=== PATIENT | male | born 1970 | race Caucasian/White ===

== ENCOUNTER 2020-03-14 04:31 | Emergency (ER) | payer OTHER ==
[2020-03-14] MEDS ORDERED: KETOROLAC TROMETHAMINE INJ/PF 30 MG/1 ML SDV IV ONE (04:47)
[2020-03-14] MEDS ORDERED: ONDANSETRON HCL INJ/PF 4 MG/2 ML SDV IV ONE (04:47)
[2020-03-14] MEDS ORDERED: MORPHINE SULFATE 10 MG/ML INJ IV ONE (04:47)
[2020-03-14] MEDS ORDERED: NORMAL SALINE 1000 ML 1,000 ML IV ONE ×2 (04:47→06:17)
--- NOTE | 2020-03-14 04:49 | ER Document Report ---
ED GI/ - General Chief Complaint: Flank Pain Stated Complaint: FLANK PAIN Time Seen by Provider: 03/14/20 04:43 Notes: Patient is a 49-year-old male who comes emergency department for chief complaint of right abdominal and right flank pain. Patient states that he has a known 3.5 mm kidney stone that he is passing on the right side, he states he was seen in [place] this morning for it, he traveled to help his daughter here today and then suddenly started having severe worsening pain tonight with multiple episodes of vomiting. He denies fever. He states he has had multiple kidney stones that he has passed previously. He denies any abdominal surgeries, only past medical history reported is orthopedic surgery. He states he is currently on Flomax, Westhope, Zofran. - Related Data Allergies/Adverse Reactions: No Known Allergies Allergy (Unverified 03/14/20 04:36) Past Medical History - General Information source: Patient - Social History Smoking Status: Never Smoker Frequency of alcohol use: Occasional Drug Abuse: None Lives with: Family Family History: Reviewed & Not Pertinent Patient has homicidal ideation: No Renal/ Medical History: Reports: Hx Kidney Stones Past Surgical History: Reports: Hx Orthopedic Surgery - Immunizations Hx Diphtheria, Pertussis, Tetanus Vaccination: Yes Review of Systems - Review of Systems Constitutional: No symptoms reported EENT: No symptoms reported Cardiovascular: No symptoms reported Respiratory: No symptoms reported Gastrointestinal: See HPI Genitourinary: See HPI Male Genitourinary: See HPI Musculoskeletal: No symptoms reported Skin: No symptoms reported Hematologic/Lymphatic: No symptoms reported Neurological/Psychological: No symptoms reported Physical Exam - Vital signs Vitals: Temp Pulse Resp BP Pulse Ox 98.6 F 76 20 176/100 H 98 03/14/20 04:35 03/14/20 04:35 03/14/20 04:35 03/14/20 04:35 03/14/20 04:35 - Notes Notes: GENERAL: Patient is alert and cooperative, he is restless, he appears to be in moderate distress and has difficulty holding still HEAD: Normocephalic, atraumatic. EYES: Pupils equal, round, and reactive to light. Extraocular movements intact. ENT: Oral mucosa dry, tongue midline. Oropharynx unremarkable. Airway patent. NECK: Full range of motion. Supple. Trachea midline. No lymphadenopathy. LUNGS: Clear to auscultation bilaterally, no wheezes, rales, or rhonchi. No respiratory distress. Non-tender chest wall. HEART: Regular rate and rhythm. No murmur ABDOMEN: Generalized tenderness in the right mid to lower abdomen, nonspecific, no guarding. Otherwise unremarkable. GENITOURINARY: No swelling, tenderness, erythema, or other abnormality noted. Exam performed with Darlene RN at bedside. EXTREMITIES: Moves all 4 extremities spontaneously. No edema, normal radial and dorsalis pedis pulses bilaterally. No cyanosis. BACK: no cervical, thoracic, lumbar midline tenderness. No saddle anesthesia, normal distal neurovascular exam. Moves all extremities in full range of motion. NEUROLOGICAL: Alert and oriented x3. Normal speech. Cranial nerves II through XII grossly intact. Strength 5/5 in all extremities. PSYCH: Restless and agitated SKIN: Slightly diaphoretic and flushed Course - Re-evaluation Re-evalutation: Patient was initially vomiting in the bathroom, I assisted him back into the room, patient is very restless and uncomfortable. Patient was medicated with 8 mg of morphine, 50 mg of Toradol, 4 mg of Zofran, IV fluids. CBC unremarkable, chemistry shows elevated creatinine at 1.86, nonspecific otherwise. Urinalysis still pending. Patient reevaluated, he is still quite uncomfortable. Given 1 mg of Dilaudid and 25 mg of Benadryl. Given additional IV fluids. KUB unremarkable with no obvious passing stone or severe constipation, no obstructive findings. Urinalysis does not show infection or concerning findings. On reevaluation patient has no symptoms, states he feels completely better, he has been able to tolerate p.o. without difficulty, patient is very appreciative and requesting to go home. Patient will be provided with stronger pain medication, he does already have urology follow-up and will be going back to [place] in a couple of days for this. Provided with copy of his renal functioning, patient states this is approximately what his renal functioning was on recent check and he states he will make sure this improves. Discussed return precautions. Patient states appreciation and agreement. Stable and well- appearing at time of discharge. - Vital Signs Vital signs: Temp Pulse Resp BP Pulse Ox 98.6 F 76 13 161/91 H 98 03/14/20 04:35 03/14/20 04:35 03/14/20 07:01 03/14/20 07:01 03/14/20 07:01 - Laboratory Result Diagrams: 03/14/20 04:55 03/14/20 04:55 Laboratory results interpreted by me: 03/14/20 03/14/20 03/14/20 04:55 04:55 06:38 MCHC 36.1 H Plt Count 132 L Lymph % (Auto) 10.6 L Seg Neutrophils % 78.6 H Sodium 136.9 L Carbon Dioxide 21 L BUN 22 H Creatinine 1.86 H Est GFR ( Amer) 47 L Est GFR (MDRD) Non-Af 39 L Glucose 130 H Urine Blood SMALL H Discharge - Discharge Clinical Impression: Ureterolithiasis Abdominal pain Qualifiers: Abdominal location: lower abdomen, unspecified Qualified Code(s): R10.30 - Lower abdominal pain, unspecified Vomiting Qualifiers: Vomiting type: unspecified Vomiting Intractability: non-intractable Nausea presence: with nausea Qualified Code(s): R11.2 - Nausea with vomiting, unspecified Condition: Stable Disposition: HOME, SELF-CARE Additional Instructions: Your kidney functioning is somewhat elevated and this needs to be rechecked, please drink plenty of fluids. Your remaining work-up does not show any c oncerning findings including no infection in the urine, no severe constipation, no other abnormal values. I recommend that you take the Percocet instead of the Westhope, continue Zofran, continue Flomax. You can also take Benadryl. Unfortunately you should avoid [id number] anti-inflammatories (ibuprofen, naproxen, aspirin) until your kidney functioning improves. Return if you worsen including severe worsening pain, uncontrolled vomiting, fever, or any other concerning symptoms. Prescriptions: Polyethylene Glycol 3350 [Miralax Powder 17 gm/Packet] 1 packet PO DAILY PRN #1 pkg PRN Reason: Oxycodone HCl/Acetaminophen [Percocet 5-325 mg Tablet] 1 - 2 tab PO TID PRN #20 tab PRN Reason:
[2020-03-14] MEDS ORDERED: HYDROMORPHONE HCL INJ/PF 2 MG/ML AMPULE IV ONE (05:29)
[2020-03-14] MEDS ORDERED: DIPHENHYDRAMINE HCL 50 MG/ML VIAL IV ONE (05:30)
[2020-03-14 06:10] LABS: ALBUMIN 4.7 g/dL (3.5-5.0); ALKALINE PHOSPHATASE 53 U/L (38-126); ANION GAP 15 (5-19); ASPARTATE AMINO TRANSFERASE 32 U/L (17-59); BILIRUBIN,DIRECT 0.2 mg/dL (0.0-0.4); BILIRUBIN,TOTAL 0.9 mg/dL (0.2-1.3); BLOOD UREA NITROGEN 22 mg/dL (7-20); CALCIUM 9.6 mg/dL (8.4-10.2); CARBON DIOXIDE 21 mmol/L (22-30); CHLORIDE 101 mmol/L (98-107); GLUCOSE 130 mg/dL (75-110); POTASSIUM 4.1 mmol/L (3.6-5.0); TOTAL PROTEIN 7.5 g/dL (6.3-8.2)
[2020-03-14 06:11] LABS: ABSOLUTE EOSINOPHILS # (AUTO) 0.1 10^3/uL (0.0-0.6); ABSOLUTE LYMPHOCYTES (AUTO) 0.9 10^3/uL (0.5-4.7); ABSOLUTE MONOCYTES (AUTO) 0.8 10^3/uL (0.1-1.4); ABSOLUTE NEUT (AUTO) 6.3 10^3/uL (1.7-8.2); BASOPHILS % (AUTO) 0.2 % (0-2); EOSINOPHILS % (AUTO) 1.1 % (0-6); HEMATOCRIT 40.5 % (37.9-51.0); HEMOGLOBIN 14.6 g/dL (13.5-17.0); LYMPHOCYTES % (AUTO) 10.6 % (13-45); MEAN CORPUSCULAR HEMOGLOBIN 32.7 pg (27.0-33.4); MEAN CORPUSCULAR HGB CONC 36.1 g/dL (32.0-36.0); MEAN CORPUSCULAR VOLUME 91 fl (80-97); MONOCYTES % (AUTO) 9.5 % (3-13); PLATELET COUNT 132 10^3/uL (150-450); RED BLOOD COUNT 4.48 10^6/uL (4.35-5.55); RED CELL DISTRIBUTION WIDTH 12.6 % (11.5-14.0); SEGMENTED NEUTROPHILS % (AUTO) 78.6 % (42-78); TOTAL CELLS COUNTED % (AUTO) 100 %
[2020-03-14 06:54] LABS: APPEARANCE,URINE CLEAR; BILIRUBIN,URINE NEGATIVE (NEGATIVE); COLOR,URINE STRAW; GLUCOSE, URINE NEGATIVE (NEGATIVE); KETONES,URINE NEGATIVE (NEGATIVE); LEUKOCYTE ESTERASE,URINE NEGATIVE (NEGATIVE); NITRITE,URINE NEGATIVE (NEGATIVE); PROTEIN,URINE NEGATIVE (NEGATIVE); URINE SPECIFIC GRAVITY 1.008; UROBILINOGEN,URINE NEGATIVE mg/dL (<2.0)
--- NOTE | 2020-03-14 07:00 | RADIOLOGY REPORT (SQ) ---
EXAM DESCRIPTION: XR ABDOMEN 1 VIEW (KUB) COMPLETED DATE/TME: 03/14/2020 05:29 CLINICAL HISTORY: 49 years, Male, abd pain and swelling COMPARISON: None. NUMBER OF VIEWS: One TECHNIQUE: AP view of the abdomen LIMITATIONS: None. FINDINGS: No dilated loops of small bowel. No abnormal calcifications. Three syndesmotic screws overlie the right sacroiliac joint. No acute fracture. IMPRESSION: Nonobstructing bowel gas pattern copyright 2010 [email or web address]- All Rights Reserved
[2020-03-14 07:36] VITALS: BP 164/93
== END 2020-03-14 07:43 | disposition home or self-care (01) ==
LOC: ER 04:31
DX: N20.1 Calculus of ureter (principal); R11.2 Nausea with vomiting, unspecified
CPT/HCPCS: 99284; 96361; 96374; 96375; 36415; 83690; 85025; 80053; 81001; 74018; J1200; J1885; J2270; J1170; J2405; J7030